=== PATIENT | female | born 1965 | race African-American/Black ===

== ENCOUNTER 2018-01-22 17:15 | Inpatient (IN) | payer OTHER ==
[~2018-01-22] VITALS: Ht 160 cm; Wt 72.1 kg
[2018-01-22] MEDS ORDERED: SODIUM CHLORIDE 0.9% 1,000 ML IVB ONE (17:39)
[2018-01-22 18:05] LABS: Basophils # (auto) 0 uL; Eosinophils # (auto) 0.1 uL; Hemoglobin 13.4 g/dL (12.2-16.2); Lymphocytes # (auto) 1.8 uL; Mean Corpuscular Hemoglobin 25.8 pg (28.0-32.0); Mean Corpuscular Hgb Conc. 31.6 g/dL (32.0-36.0); Monocytes # (auto) 0.4 uL; Neutrophils # (auto) 7.3 uL; Nucleated Red Blood Cells % 0.1 %; White Blood Cell 9.6 10^3/uL (4.4-10.8)
[2018-01-22 18:06] LABS: Basophils % (auto) 0.3 % (0.0-2.0); Eosinophils % (auto) 1.4 % (0.0-7.0); Hematocrit 42.4 % (36.0-46.0); Lymphocytes % (auto) 18.7 % (10.0-50.0); Mean Corpuscular Volume 81.5 fL (80.0-100.0); Monocytes % (auto) 3.8 % (0.0-12.0); Neutrophils % (auto) 75.8 % (37.0-80.0); Platelet Count (auto) 292 10^3/uL (140-450); Red Blood Cells 5.19 10^6/uL (4.0-5.20); Red Cell Distribution Width 13.6 % (11.8-14.3)
[2018-01-22] MEDS ORDERED: FLUO20CA19 PO (18:13)
[2018-01-22] MEDS ORDERED: INSLANTI SC (18:13)
[2018-01-22] MEDS ORDERED: LOSA50TA6 PO (18:19)
[2018-01-22] MEDS ORDERED: PROP60CA34 PO (18:19)
[2018-01-22] MEDS ORDERED: TOPI100T68 PO (18:19)
[2018-01-22] MEDS ORDERED: ATOR40TA52 PO (18:19)
[2018-01-22] MEDS ORDERED: NOVALOG SUBCUT (18:19)
[2018-01-22] MEDS ORDERED: MET50T PO (18:19)
[2018-01-22 18:21] LABS: Alanine Aminotransferase 10 U/L (13-56); Anion Gap 12 (5-15); Aspartate Aminotransferase 6 U/L (15-37); BUN/Creatinine Ratio 13.7; Blood Urea Nitrogen 21 mg/dL (7-18); Calcium 9.2 mg/dL (8.5-10.1); Carbon Dioxide 20 mmol/L (21-32); Chloride 99 mmol/L (98-107); GFR African American 46 mL/min; GFR Non-African American 38 mL/min; Potassium 4.5 mmol/L (3.5-5.1); Sodium 131 mmol/L (136-145)
[2018-01-22 18:23] LABS: Alkaline Phosphatase 101 U/L (45-117); Bilirubin, Total 0.5 mg/dL (0.2-1.0); Total Protein 8.1 g/dL (6.4-8.2)
[2018-01-22 18:28] LABS: Glucose 487 mg/dL (74-106)
[2018-01-22 18:38] LABS: INR 0.94 (0.9-1.15); Partial Thromboplastin Time 26.9 sec (23.78-33.04); Prothrombin Time 10.1 sec (9.27-12.13)
[2018-01-22 19:23] LABS: Urine Amorphous Crystal FEW /hpf (None Seen); Urine Bacteria NONE SEEN /hpf (None Seen); Urine Blood Negative /uL (Negative); Urine Specific Gravity 1.027 (1.001-1.035); Urine WBC 17 /hpf (0 - 5)
[2018-01-22 19:28] LABS: Alcohol, Urine < 3.0 mg/dL (0-5); Amphetamine Screen, Urine NEGATIVE (NEGATIVE); Barbiturate Scree,Urine NEGATIVE (NEGATIVE); Benzodiazephine Screen, Urine NEGATIVE (NEGATIVE); Cannabinoid Screen, Urine POSITIVE (NEGATIVE); Cocaine Screen, Urine NEGATIVE (NEGATIVE); Opiate Scree,Urine NEGATIVE (NEGATIVE); Phencyclidine Screen, Urine NEGATIVE (NEGATIVE)
[2018-01-22] MEDS ORDERED: cefTRIAXone 1GM/10ml IVPUSH 10 ML IV ONE (21:00)
[2018-01-22] MEDS ORDERED: KETOROLAC TROMETH 30 MG/ML 1ML VIAL IV ONE (21:45)
[2018-01-22] MEDS ORDERED: TEMAZEPAM 15 MG CAP PO PRN (22:30)
[2018-01-22] MEDS ORDERED: DEXTROSE (50%) 50ML SYRG IV PRN (22:30)
[2018-01-22] MEDS ORDERED: MECLIZINE HCL 25 MG TAB PO PRN (22:30)
[2018-01-22] MEDS ORDERED: ACETAMINOPHEN 325 MG TAB PO PRN (22:30)
[2018-01-22] MEDS ORDERED: ONDANSETRON HCL 4 MG/2 ML VIAL IV PRN (22:30)
[2018-01-23] MEDS ORDERED: cefTRIAXone 1GM/10ml IVPUSH 10 ML IV SCH
[2018-01-23] MEDS: ACCU-CHEK COMFORT CURVE STRIP VI SCH ×5 (00:35→23:54)
[2018-01-23] MEDS: InsuLIN REG 1unit/0.01ml Soln (100units/ml) SC SCH ×5 (00:35→23:54)
[2018-01-23] MEDS: SODIUM CHLORIDE 0.9% 1,000 ML IV SCH ×3 (00:36→22:02)
[2018-01-23 01:16] VITALS: BP 140/80
[2018-01-23 05:18] VITALS: BP 155/76
[2018-01-23 05:51] LABS: Basophils # (auto) 0 uL; Basophils % (auto) 0.3 % (0.0-2.0); Eosinophils # (auto) 0.2 uL; Eosinophils % (auto) 2.5 % (0.0-7.0); Mean Corpuscular Hemoglobin 25.6 pg (28.0-32.0); Neutrophils # (auto) 4.6 uL
[2018-01-23 05:55] LABS: Hematocrit 36.7 % (36.0-46.0); Hemoglobin 11.8 g/dL (12.2-16.2); Mean Corpuscular Volume 80.1 fL (80.0-100.0); Monocytes # (auto) 0.5 uL; Monocytes % (auto) 6.2 % (0.0-12.0); Platelet Count (auto) 249 10^3/uL (140-450); Red Blood Cells 4.59 10^6/uL (4.0-5.20); Red Cell Distribution Width 13.1 % (11.8-14.3); White Blood Cell 7.3 10^3/uL (4.4-10.8)
[2018-01-23 06:19] LABS: Albumin 2.5 g/dL (3.4-5.0); BUN/Creatinine Ratio 16.5; Bilirubin, Total 0.4 mg/dL (0.2-1.0); Calcium 8.6 mg/dL (8.5-10.1); Potassium 3.8 mmol/L (3.5-5.1); Total Protein 6.6 g/dL (6.4-8.2)
[2018-01-23] MEDS: PANTOPRAZOLE 40 MG TAB PO SCH (07:01)
[2018-01-23 09:00] VITALS: BP 141/81
[2018-01-23] MEDS: TOPIRAMATE 100 MG TAB PO SCH ×2 (10:16→22:05)
[2018-01-23] MEDS: cefTRIAXone 1GM/10ml IVPUSH 10 ML IV SCH (10:16)
[2018-01-23] MEDS: LOSARTAN POTASSIUM 50 MG TAB PO SCH ×2 (10:16→22:06)
[2018-01-23] MEDS: PROPRANOLOL HCL 20 MG TAB PO SCH (10:17)
[2018-01-23] MEDS: METOPROLOL TARTRATE 25 MG TAB PO SCH ×2 (10:18→22:07)
[2018-01-23] MEDS: HYDROcodone-ACET 5/325MG TAB PO PRN ×3 (11:38→23:50)
[2018-01-23] MEDS: INSULIN LISPRO (HUMAN) 100 UNITS/ML ML SC SCH ×2 (12:38→18:29)
[2018-01-23 13:00] VITALS: BP 134/78
[2018-01-23 16:56] VITALS: BP 148/79
[2018-01-23 22:00] VITALS: BP 154/83
[2018-01-23] MEDS ORDERED: ATORVASTATIN 20 MG TAB PO SCH (22:00)
[2018-01-23] MEDS ORDERED: INSULIN LANTUS (GLARGINE) 1 /0.01ml (100units/ml) SC SCH (22:00)
[2018-01-24 05:00] LABS: BUN/Creatinine Ratio 12.7; Calcium 8.2 mg/dL (8.5-10.1); Potassium 3.6 mmol/L (3.5-5.1)
[2018-01-24 05:26] VITALS: BP 127/79
[2018-01-24] MEDS: InsuLIN REG 1unit/0.01ml Soln (100units/ml) SC SCH ×2 (06:00→12:00)
[2018-01-24] MEDS: ACCU-CHEK COMFORT CURVE STRIP VI SCH ×2 (06:00→12:00)
[2018-01-24] MEDS: PANTOPRAZOLE 40 MG TAB PO SCH (07:26)
[2018-01-24 08:00] VITALS: BP 154/83
[2018-01-24] MEDS: INSULIN LISPRO (HUMAN) 100 UNITS/ML ML SC SCH ×2 (08:25→12:00)
[2018-01-24] MEDS: cefTRIAXone 1GM/10ml IVPUSH 10 ML IV SCH (08:26)
[2018-01-24] MEDS: PROPRANOLOL HCL 20 MG TAB PO SCH (08:26)
[2018-01-24] MEDS: LOSARTAN POTASSIUM 50 MG TAB PO SCH (08:26)
[2018-01-24] MEDS: TOPIRAMATE 100 MG TAB PO SCH (08:26)
[2018-01-24] MEDS: METOPROLOL TARTRATE 25 MG TAB PO SCH (08:27)
[2018-01-24] MEDS: SODIUM CHLORIDE 0.9% 1,000 ML IV SCH (09:48)
[2018-01-24 12:24] VITALS: BP 143/84
== END 2018-01-24 12:45 | disposition home or self-care (01) | DRG 637 ==
LOC: ER 17:15 → OVERFLOW 17:16 → WEST WING 23:15
PROVIDERS: ADMIT Nurse Practitioner; ATTEND Internal Medicine Geriatric Medicine
DX: E11.65 Type 2 diabetes mellitus with hyperglycemia (principal); N17.0 Acute kidney failure with tubular necrosis; E87.1 Hypo-osmolality and hyponatremia; N39.0 Urinary tract infection, site not specified; E11.22 Type 2 diabetes mellitus with diabetic chronic kidney disease; E86.0 Dehydration; I12.9 Hypertensive chronic kidney disease with stage 1 through stage 4 chronic kidney disease, or unspecified chronic kidney disease; N18.3 Chronic kidney disease, stage 3 (moderate); R55 Syncope and collapse; Z82.49 Family history of ischemic heart disease and other diseases of the circulatory system; Z83.3 Family history of diabetes mellitus; Z86.73 Personal history of transient ischemic attack (TIA), and cerebral infarction without residual deficits
CPT/HCPCS: 36415; 70450; 71045; 80048; 80053; 80061; 80307; 81001; 82962; 83036; 83735; 83880; 84484; 85025; 85610; 85730; 87086; 93005; 96361; 96374; 96375; J0696; J1815; J1885